=== PATIENT | male | born 1955 | race Caucasian/White ===

== ENCOUNTER 2017-11-12 08:19 | Outpatient (CLI) | payer BC ==
--- NOTE | 2017-11-12 10:16 | ULT ---
RIGHT UPPER QUADRANT ULTRASOUND: 11/12/2017 HISTORY: Elevated liver function tests. COMPARISON: None. TECHNIQUE: Multiplanar bucio-scale sonographic imaging of the right upper quadrant obtained. FINDINGS: The imaged pancreas is unremarkable. The distal body and tail of the pancreas is obscured by bowel g as. No focal liver lesion or intrahepatic biliary dilatation is noted. The right kidney measures 11.7 cm in craniocaudal dimension and demonstrates no stone, hydronephrosis , or mass lesion. The common bile duct measures 5-6 mm, upper limits of normal. No gallbladder wall thickening or pericholecystic fluid. No gallstones seen. Sonographic Neville sig n is negative. IMPRESSION: No acute findings. No evidence for cholelithiasis, cholecystitis, or biliary dilatation. POS: HALLIEH
== END 2017-11-12 08:20 | disposition home or self-care (01) ==
LOC: ULT 08:19
PROVIDERS: ATTEND Internal Medicine Geriatric Medicine
DX: R94.5 Abnormal results of liver function studies (principal); R50.9 Fever, unspecified
CPT/HCPCS: 36415; 76705; 83516; 85610; 85730

== ENCOUNTER 2018-04-28 07:22 | Day surgery (SDC) | payer BC ==
[2018-04-21 15:08] VITALS: BMI 25.1
[2018-04-28] MEDS ORDERED: Dexamethasone 4 mg/ml Vial ONE (07:50)
[2018-04-28] MEDS ORDERED: Levofloxacin 500 mg/D5W 100 ml Premix Bag ONE (07:50)
[2018-04-28] MEDS ORDERED: Furosemide 20 MG/2 ML VIAL ONE (09:04)
[2018-04-28] MEDS ORDERED: B & O 30 MG SUPP ONE (09:04)
[2018-04-28] MEDS ORDERED: Fentanyl 100 MCG/2 ML VIAL ONE ×2 (09:16)
[2018-04-28] MEDS ORDERED: HYDROcodone/Acetaminophen 5/325 mg Tablet ONE ×2 (11:54→11:58)
--- NOTE | 2018-04-29 14:37 | OP ---
DATE OF PROCEDURE: 04/28/2018 PREOPERATIVE DIAGNOSIS: Benign prostatic hypertrophy. POSTOPERATIVE DIAGNOSIS: Benign prostatic hypertrophy. PROCEDURE: GreenLight laser ablation of prostate using 210,160 joules. SPECIMEN: Prostate. SURGEON: Dr. Pema Schmidt COMPLICATIONS: None. DRAINS REMAININ-K[place] 2-way. ANESTHESIA: General with a LMA. FINDINGS: Adequate open up of the prostatic urethra with obstructing lateral lobes that were taken d own a good stream noted at the end of the case. PROCEDURE IN DETAIL: The patient was brought into the room by Anesthesia, laid on the table in supin e position. After receiving general anesthetic his legs were placed in lithotomy position and his pe rineum was prepped and draped in sterile fashion. Using a 22.5 [place] cystoscope and 30 degree lens, urethra was traversed and the bladder inspected. The ureteral orifices were identified and preserve d throughout the case. A power of 80 was used at the bladder neck and near the veru and a power of 1 80 was used for the rest of the gland. The middle lobe was not very impressive, it was the lateral l obes that were more obstructive and these were easily taken down. When the scope was removed a good stream was noted. Scope was put back in and then contoured near the bladder neck was performed at a power of 80 and taking down the trigonal ridge to the level of the floor behind it. There was a vein that started to ooze when the pressure was quite low on the right so I spent the last few minutes at tempting to address this and even used a small amount of coag in this area only when there was really a completely decompressed bladder were there any concern for bleeding noted. At this point, the sco pe was removed and a 20 [place] catheter was placed to gravity, clear urine was obtained and noted imm ediately after. So at this point, the patient was awakened and transferred to PACU in stable conditi on.
== END 2018-04-28 13:45 | disposition home or self-care (01) ==
LOC: SDC 07:22
PROVIDERS: ATTEND Urology
PROC: 0V507ZZ Destruction of Prostate, Via Natural or Artificial Opening (ICD-10-PCS; principal; 2018-04-28)
DX: N40.1 Benign prostatic hyperplasia with lower urinary tract symptoms (principal); R39.15 Urgency of urination; R39.14 Feeling of incomplete bladder emptying; N52.9 Male erectile dysfunction, unspecified; E78.00 Pure hypercholesterolemia, unspecified; I10 Essential (primary) hypertension; Z79.899 Other long term (current) drug therapy; Z79.82 Long term (current) use of aspirin
CPT/HCPCS: 88305; 96374; J1100; J1940; J1956; J3010